=== PATIENT | male | born 1975 | race Caucasian/White ===

== ENCOUNTER 2017-10-14 11:03 | Emergency (ER) | payer OTHER ==
[2017-10-14] MEDS ORDERED: HYDROcodone/Acetaminophen 5/325 mg Tablet ONE (11:24)
[2017-10-14] MEDS ORDERED: Acetaminophen 325 MG TAB ONE (11:25)
[2017-10-14] MEDS ORDERED: Adacel (T-DAP) 0.5 ML VIAL ONE (11:25)
--- NOTE | 2017-10-14 11:55 | RAD ---
CHEST 1 VIEW LEFT RIBS 3 VIEWS: Date: 10/14/17 HISTORY: Thrown from a horse earlier. Post-traumatic pain. COMPARISON: None. FINDINGS: Chest 1 View: Normal cardiac silhouette. Pulmonary vessels and pulmonary hilum are normal. Costophrenic angles are clear. No consolidation or mass. No pneumothorax or osseous abnormalities. Left Rib Series: No fracture. No cortical irregularity. No periosteal reaction. IMPRESSION: 1. No acute cardiopulmonary process. 2. No evidence of post-traumatic change in the left bony thorax. POS: [facility]
== END 2017-10-14 12:05 | disposition home or self-care (01) ==
LOC: MADERS 11:03
DX: S20.212A Contusion of left front wall of thorax, initial encounter (principal); S00.81XA Abrasion of other part of head, initial encounter; V80.010A Animal-rider injured by fall from or being thrown from horse in noncollision accident, initial encounter
CPT/HCPCS: 90471; 90715

== ENCOUNTER 2021-12-14 11:12 | Emergency (ER) | payer OTHER ==
[2021-12-14] MEDS ORDERED: Lidocaine 1% (PF) 30 ML VIAL ONE (12:57)
[2021-12-14] MEDS ORDERED: CEFAZOLIN 1 GM VIAL ONE (12:57)
[2021-12-14] MEDS ORDERED: Boostrix 0.5 ML (Tdap) VIAL (>/=7 yrs of age) ONE (12:57)
[2021-12-14] MEDS ORDERED: Sterile Water 10 ML ONE (13:16)
== END 2021-12-14 13:45 | disposition home or self-care (01) ==
LOC: MADERS 11:12
DX: S82.122A Displaced fracture of lateral condyle of left tibia, initial encounter for closed fracture (principal); W22.09XA Striking against other stationary object, initial encounter
CPT/HCPCS: 12032; 90471; 90715; 96372; J0690; J2001